=== PATIENT | female | born 1935 | race Caucasian/White ===

== ENCOUNTER → 2017-08-01 | Day surgery (SDC) | payer OTHER, MEDICARE ==
[~2017-08-01] VITALS: Ht 154.9 cm; Wt 56.2 kg
[~2017-08-01] MED LIST: ATORVASTATIN CA10 M1 PO; CENTRUM SILVER1 EAC3 PO; ELIQUIS5 M1 PO; LOPRESSOR50 M1 PO; MAGNESIUM500 M2 PO; PRINIVIL10 M1 PO; VITAMIN B-121000 MC3 PO; VITAMIN D1000 UNIT PO; ZINC50 M2 PO
--- NOTE | 2017-08-01 17:13 | Operative Report ---
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 She was very bothered by the prolapse and unfortunately due to were shortened vaginal canal she was unable to be fitted with a pessary. She was very interested in surgical correction of her prolapse and she was given the risks benefits and alternatives in the office as well as in the holding area. All questions were answered. Consent was signed. The details of vaginal mesh were discussed at length and she expressed concerns about permanent propylene mesh. As a result every attempt to place Acell dissolvable mesh was to be attempted. Patient was taken to the operating room placed on the operating table supine position. Timeout was performed. IV antibiotics were infused. LMA anesthesia was begun. She was placed in the dorsal lithotomy position and prepped and draped in the standard sterile fashion after the genitalia were shaved. Luna catheter was placed in the bladder was emptied. [place] retractor was placed with 6 stay hooks for optimal visualization. 1% lidocaine was infiltrated into the anterior vaginal wall from the bladder neck to the vaginal apex. There was quite a bit of vaginal scarring at the anterior wall. The hydro-dissection was not optimal due to the scar tissue and the incision was made taking care not to injure the bladder beneath. However during sharp dissection with the Metzenbaum scissors to separate the anterior vaginal wall and the bladder there was a sudden gush of air fluid. 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 The ureteral orifices were easily identified and were quite distant from the site of the diverticulum. Attention was then turned to continuing the dissection to separate the bladder from the vagina. Once the bladder was completely dissected free the defect was closed with interrupted 2-0 Vicryl sutures in the mucosa followed by 2-0 Vicryl interrupted in the bladder muscle. The bladder was full at this time and there was no visible leakage appreciated. Cystoscopy was performed again and the ureteral orifices were intact and far away from the defect site with good ureteral efflux. Sutures were seen in the bladder. The fascial layer sutures were then placed with 2-0 Vicryl from the anterior to the apex. The Acell mesh was then secured in place with 2-0 Vicryl interrupted sutures at the bladder neck and at the apex. The fascial layer sutures were then tied down incorporating a cell mesh. This nicely reduced the cystocele. A cystoscopy was performed again and excellent ureteral efflux was seen on the right but sluggishly on the left and the bladder defect was nicely reapproximated. Just to be conservative, a left ureteral stent was left in place using a Solo Bard wire to place the 6 x 22 cm stent. The anterior vaginal wall was then closed with 2-0 Vicryl interrupted sutures. The cystocele was now resolved. Once the entire vaginal wall was closed cystoscopy was performed again to see if she had occult stress urinary incontinence. Her bladder was full and a Cred maneuver was performed she did have brisk stress incontinence. Attention was then turned to the urethral sling portion of the case. 1% lidocaine was infiltrated into the anterior vaginal wall beneath the urethra. Incision was made approximately 2 inches in length and the vaginal flaps were created taking care not to injure the urethra. The Coloplast Altis Sling kit was then opened and the trochars provided used to place the sling in a flat tension-free manner. The Prolene suture was then used to tighten the mesh sling with a DeBakey between the urethra and the sling. He was seen to be in good position. It was irrigated with bacitracin irrigation and the incision was then closed with running locking 3-0 Vicryl suture every third suture. There was no mesh in the vaginal fornices. The area was copiously irrigated. 2 inch vaginal packing impregnated with bacitracin ointment was placed in the vaginal vault. Luna catheter was left in the 10 mL of water in the balloon to allow for optimal bladder healing. Sponge and needle count were correct at the end of the case. Patient tolerated the procedure well. 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 Discharge Disposition: PACU
== END ==
LOC: STS 01:54
DX: R32 Unspecified urinary incontinence (principal); R39.198 Other difficulties with micturition; N81.10 Cystocele, unspecified; N32.3 Diverticulum of bladder; Z90.710 Acquired absence of both cervix and uterus; I48.91 Unspecified atrial fibrillation; Z79.01 Long term (current) use of anticoagulants; I10 Essential (primary) hypertension; E11.9 Type 2 diabetes mellitus without complications
CPT/HCPCS: 93005; 93010; C1771; C1781; C2617; J0131; J0690; J2405; Q9968